=== PATIENT | female | born 2000 | race Caucasian/White ===

== ENCOUNTER 2022-10-15 20:32 | Emergency (ER) | payer OTHER, SELFPAY ==
[2022-10-15 20:36] VITALS: BP 125/87; PULSE 81; RESP 16; TEMP 36.7; O2SAT 99; BMI 17.3
[2022-10-15 21:12] LABS: Specific Gravity Urine UA <=1.005 (1.000-1.035)
--- NOTE | 2022-10-15 21:16 | ED.FEMALEGU ---
HPI - Female Genitourinary General Chief complaint: Urogenital-Female Stated complaint: UTI Time Seen by Provider: 10/15/22 21:13 Source: patient Mode of arrival: Ambulatory History of Present Illness HPI Narrative: Patient is a healthy 22-year-old female who presents with 2 days of painful frequent urination. She says she just started seeing someone new. She is using control. She just had an STD check which was negative. She has a little bit of nausea minimal back pain no fever or chills. Related Data Previous Rx's Medication Instructions Recorded cephalexin 500 mg capsule 500 mg PO BID 5 days #10 caps 10/15/22 phenazopyridine 100 mg tablet 100 mg PO TID PRN pain 6 doses #6 10/15/22 (Pyridium) tabs Allergies Allergy/AdvReac Type Severity Reaction Status Date / Time No Known Drug Allergies Allergy Verified 10/15/22 20:49 Review of Systems Review of Systems ROS Unobtainable: All systems reviewed & are unremarkable except as noted in HPI and below Patient History alcohol intake frequency: holidays/special occasions only Exam Initial Vital Signs Initial Vital Signs: Vital Signs Temperature 98.1 F 10/15/22 20:36 Pulse Rate 81 10/15/22 20:36 Respiratory Rate 16 10/15/22 20:36 Blood Pressure 125/87 10/15/22 20:36 Pulse Oximetry 99 10/15/22 20:36 Oxygen Delivery Method Room Air 10/15/22 20:36 GENERAL: Well-appearing, well-nourished and in no acute distress. CARDIOVASCULAR: peripheral pulses in tact, cap refill <2 sec RESPIRATORY: No respiratory distress, speaks in full sentences without difficulty ABDOMEN: Soft, nontender, no guarding or rebound no suprapubic pain : No CVA tenderness EXTREMITIES: Normal range of motion, no clubbing or edema. Neurovascularly intact NEUROLOGICAL: Cranial nerves II through XII grossly intact. Normal gait and speech. SKIN: Warm, dry, no petechiae, no rashes or lesions. Course Orders Ordered: ED Orders 10/15/22 20:41 Ictotest Urine Stat Test Urine Stat UA Complete [Urinalysis and Microscopic] Stat Urine Culture Stat Discontinued Medications Cefazolin Sodium (Cephalexin 250 Mg Cap Prepack) 1 bottle MISC SEEINSTR ONE Stop: 10/15/22 21:17 Last Admin: 10/15/22 21:22 Dose: 250 mg Documented By: TEO Phenazopyridine HCl (Phenazopyridine 100 Mg Tablet) 200 mg PO NOW ONE Stop: 10/15/22 21:17 Last Admin: 10/15/22 21:22 Dose: 200 mg Documented By: TEO Vital Signs Vital signs: Vital Signs - 8 hr 10/15/22 20:36 10/15/22 21:27 10/15/22 21:36 Temperature 98.1 F Pulse Rate 81 78 88 Respiratory Rate 16 16 Blood Pressure 125/87 125/67 125/67 Pulse Oximetry 99 100 100 Oxygen Delivery Method Room Air Room Air Room Air MDM - Female Genitourinary Lab Data Labs: Lab Results 10/15/22 10/15/22 10/15/22 Range/Units 20:41 20:41 20:41 Urine Color [place] Urine Appearance Slightly cloudy Urine pH 5.0 (4.5-8.0) Ur Specific [place] <=1.005 (1.000-1.035) Urine Protein TNP Urine Glucose (UA) TNP Urine Ketones TNP Urine Occult Blood TNP Urine Nitrate TNP Urine Bilirubin TNP Ur Bilirubin Confirm TNP Urine Urobilinogen TNP Ur Leukocyte Esterase TNP Urine RBC 30-100/hpf H (0-5/HPF) Urine WBC 5-10/hpf H (0-5/HPF) Ur Squamous Epith Cells 0-1 /hpf (0-5/HPF) Urine Bacteria Few (2-10) H (None) Ur Culture Indicated? Specimen cultured Urine Test Negative (Negative) Urine Dip Bedside Urine Glucose Negative Bedside Urine Bilirubin + 1 Bedside Urine Ketone +/- 5 Urine Specific [place] 1.010 Bedside Urine Occult Blood +++ Bedside Urine pH 6.0 Bedside Urine Protein - Negative Bedside Urine Urobilinogen +/- 1mg Bedside Urine Nitrite + Positive Bedside Urine Leukocytes +++ 500 Esterase MDM Narrative Medical decision making narrative: Patient is a healthy 22-year-old female signs and symptoms consistent with UTI. She has no evidence of sepsis or severe infection. No evidence of pyelonephritis she is not having significant flank pain. She is already been tested for STDs which have come back negative. She is nitrates in her urine, culture has been sent. She is given Pyridium and Keflex in the ED. Discharge Plan Departure Patient Disposition: Home Clinical Impression: Urinary tract infection Instructions: DI for Urinary Tract Infection (UTI) Activity Restrictions/Additional Instructions: *You have been diagnosed with UTI *What to do: Increase fluid intake, you should start feeling better in the next 24-48 hours *Continue to take medications as directed Keflex 500 mg twice a day for 5 days Pyridium 100 mg 3 times a day for 3 days only if needed for painful or frequent urination *Follow up with your primary care provider in 2-3 days or call [phone] *Return to ER if you should have increasing back pain fever persistent vomiting or any new, worsening or concerning symptoms Prescriptions: New phenazopyridine [Pyridium] 100 mg tablet 100 mg PO TID PRN (Reason: pain) Qty: 6 0RF cephalexin 500 mg capsule 500 mg PO BID 5 Days Qty: 10 0RF Stand Alone Forms: Patient Portal/API
[2022-10-15 21:19] LABS: Appearance Urine UA Slightly Cloudy; Color Urine UA ORANGE
[2022-10-15] MEDS: PHENAZOPYRIDINE 100 MG TABLET 200 MG PO (21:22)
[2022-10-15] MEDS: cephALEXin 250 MG CAP PREPACK 1 BOTTLE MISC (21:22)
[2022-10-15 21:23] LABS: Pregnancy Test Urine Negative (Negative)
[2022-10-15 21:24] LABS: Bacteria Urine Few (2-10); Culture Indicated Urine Specimen Cultured; RBC Urine 30-100/HPF (0-5/HPF); Squamous Epithelial Cell Urine 0-1 /HPF (0-5/HPF); WBC Urine 5-10/HPF (0-5/HPF)
[2022-10-15 21:27] VITALS: BP 125/67; PULSE 78; RESP 16; O2SAT 100
[2022-10-15 21:36] VITALS: BP 125/67; PULSE 88; O2SAT 100
== END 2022-10-15 21:38 | disposition home or self-care (01) ==
PROVIDERS: Emergency Provider Emergency Medicine
DX: N39.0 Urinary tract infection, site not specified (principal)
CPT/HCPCS: 81001; 81003; 81025; 87077; 87086; 87186; 99283

== ENCOUNTER → 2024-12-21 15:58 | Outpatient (CLI) | payer OTHER, SELFPAY | PROVIDERS: Visit Provider Chiropractor | DX: J02.9 Acute pharyngitis, unspecified (principal) | CPT/HCPCS: 87070 ==

== ENCOUNTER → 2025-04-18 16:24 | Outpatient (CLI) | payer OTHER, SELFPAY ==
[2025-04-18 18:15] LABS: Influenza A - CEPHEID Flu A NEGATIVE (NEGATIVE); Influenza B - CEPHEID Flu B NEGATIVE (NEGATIVE)
[2025-04-18 18:19] LABS: COVID-19 CEPHEID 4-PLEX PCR Negative (Negative)
== END ==
LOC: LAB 16:24
PROVIDERS: Visit Provider Chiropractor
DX: R05.1 Acute cough (principal)
CPT/HCPCS: 87637